=== PATIENT | female | born 2000 | race Caucasian/White ===

== ENCOUNTER 2022-01-02 09:37 | Emergency (ER) | payer BC, MEDICAID | END 2022-01-02 11:30 | disposition home or self-care (01) | LOC: KA.ED 09:37 | DX: S93.401A Sprain of unspecified ligament of right ankle, initial encounter (principal); Z88.2 Allergy status to sulfonamides; X50.1XXA Overexertion from prolonged static or awkward postures, initial encounter | CPT/HCPCS: 73610-RT; 73630-RT; 99283; 99283-25 ==

== ENCOUNTER 2023-09-21 17:13 | Emergency (ER) | payer BC, MEDICAID ==
[2023-09-21] MEDS: Iopamidol 755 Mg/ML 100 ML Bottle IV ONE (17:45)
[2023-09-21] MEDS: Sodium Chloride 0.9% 50 ML IV SCH (17:59)
[2023-09-21] MEDS: Sodium Chloride 0.9% 1,000 ML IV ONE (18:04)
[2023-09-21] MEDS: Sodium Chloride 0.9% 1,000 ML ONE (18:07)
[2023-09-21] MEDS: Ketorolac 30 MG/ML SDV IVPUSH ONE (18:08)
[2023-09-21 18:45] LABS: HCG QUALITATIVE,URINE NEGATIVE (NEGATIVE)
== END 2023-09-21 19:16 | disposition home or self-care (01) ==
LOC: KA.ED 17:13
DX: R10.32 Left lower quadrant pain (principal); N39.0 Urinary tract infection, site not specified; Z88.2 Allergy status to sulfonamides
CPT/HCPCS: 74177; 81025; 96374; 99284-25; J1885; J3490; J7030; Q9967